=== PATIENT | female | born 1950 | race Caucasian/White ===

== ENCOUNTER 2017-07-27 11:52 | Emergency (ER) | payer OTHER ==
[2017-07-27 11:59] VITALS: BP 116/68; PULSE 66; RESP 20; TEMP 98.5; O2SAT 100
[2017-07-27] MEDS ORDERED: TETANUS/DIPHTHERIA TOXOID ADULT 0.5 ML VIAL IM ONE (12:45)
[2017-07-27] MEDS ORDERED: ACETAMINOPHEN/HYDROcodone 325 MG/5 MG TAB PO ONE (12:45)
[2017-07-27] MEDS ORDERED: AMOXICILLIN/CLAVULANATE K 875 MG TAB PO ONE (12:45)
--- NOTE | 2017-07-27 13:18 | RADRPT ---
EXAM DATE/TIME: 07/27/2017 12:48 [facility] COMPARISON: No previous studies available for comparison. INDICATIONS : Left first digit pain, post dog bite MEDICAL HISTORY : None. SURGICAL HISTORY : None. ENCOUNTER: Initial ACUITY: 1 day PAIN SCORE: 10/10 LOCATION: Left Thumb FINDINGS: Examination of the first digit of the left hand demonstrates no evidence of fracture or dislocation. No radiopaque foreign bodies are seen. The soft tissues are intact. CONCLUSION: 1. No radiopaque foreign body or acute fracture. Erik Pearson MD on July 27, 2017 at 13:16 Board Certified Radiologist. This report was verified electronically.
--- NOTE | 2017-07-27 13:21 | RADRPT ---
EXAM DATE/TIME: 07/27/2017 12:50 [facility] COMPARISON: No previous studies available for comparison. INDICATIONS : Right Fourth digit pain, Dog Bite MEDICAL HISTORY : None. SURGICAL HISTORY : None. ENCOUNTER: Initial ACUITY: 1 day PAIN SCORE: 10/10 LOCATION: Right Fourth digit FINDINGS: Mildly comminuted fracture of the fourth middle phalanx. There is mild dorsal displacement of the dis lorenzo fragment. The fracture appears to extend to the articular surface at the DIP joint. Remaining oss eous structures appear intact. No soft tissue swelling about the fourth digit. CONCLUSION: 1. Slightly displaced mildly comminuted fracture of the fourth middle phalanx. Erik Pearson MD on July 27, 2017 at 13:17 Board Certified Radiologist. This report was verified electronically.
--- NOTE | 2017-07-27 13:58 | PD ---
HPI . Injuries secondary to a dog fight Chief Complaint: Bite or Sting Time Seen by Provider: 12:26 Travel History International Travel<30 days: No Contact w/Intl Traveler<30days: No Traveled to known affect area: No History of Present Illness HPI This patient presents to us for evaluation of injury sustained in a dog fight. She was at a dog show. She states that her dog was sitting at her feet when another dog went past. The passing dog bit her dog on the neck. She was trying to break up the fight and injured her right fourth finger and left thumb. She has a laceration on the left thumb and bruising and swelling of the right fourth finger. The injury occurred just prior to presentation. She rates the pain at 5/10. She does not know the date of her last tetanus shot. PFSH Past Medical History ?: Not Past Surgical History Hysterectomy: Yes Social History Alcohol Use: Yes (OCC) Tobacco Use: No Substance Use: No Allergies-Medications (Allergen,Severity, Reaction): Coded Allergies: pseudoephedrine (Verified Allergy, Unknown, 07/27/17) Reported Meds & Prescriptions Reported Meds & Active Scripts Active No Active Prescriptions or Reported Medications Review of Systems Except as stated in HPI: all other systems reviewed are Neg Physical Exam Narrative GENERAL: Awake and alert. SKIN: warm/dry. There is a laceration at the base of the right thumb. Bleeding is controlled. There is bruising of the right fourth finger. HEAD: Normocephalic. EYES: Pupils equal and round. No scleral icterus. No injection or drainage. NECK: Full range of motion without pain.. CARDIOVASCULAR: Regular rate and rhythm. RESPIRATORY: No accessory muscle use. MUSCULOSKELETAL: She has bruising, swelling and tenderness at the PIP joint and middle phalanx of the right fourth finger. NEUROLOGICAL: Awake and alert. No obvious cranial nerve deficits. Motor grossly within normal limits. Normal speech. PSYCHIATRIC: Appropriate mood and affect; insight and judgment normal. Data Data Last Documented VS Vital Signs Date Time Temp Pulse Resp B/P (MAP) Pulse Ox O2 Delivery O2 Flow Rate FiO2 07/27/17 11:59 98.5 66 20 116/68 (84) 100 Orders Orders Finger ([id number]) (07/27/17 12:31) Finger ([id number]) (07/27/17 12:31) Tetanus/Diphtheria Tox Adult (Tetanus/Di (5/19/18 12:45) Acetamin-Hydrocod 325-5 Mg ([place] 5-325 (07/27/17 12:45) Amoxicil-Clavulanate (Augmentin) (07/27/17 12:45) MDM Medical Decision Making Medical Screen Exam Complete: Yes Emergency Medical Condition: Yes Differential Diagnosis Differential diagnosis of animal bite includes but is not limited to wound, wound infection, retained foreign body, open fracture, sepsis, rabies. Differential diagnosis of extremity trauma includes but is not limited to fracture, sprain or strain, dislocation, contusion Narrative Course This patient presents for the evaluation of injury sustained when she tried to break up a dog fight. The dogs in question are known so prophylactic rabies is not indicated at this time. She does not know the date of her last tetanus shot so that will be updated. She has a laceration at the base of the left thumb. She has bruising, swelling , tenderness and decreased motion at the PIP joint of the right fourth finger. X-rays have been ordered. She has been given [place] for her pain. Last Impressions Finger X-Ray 07/27/17 1231 Signed Impressions: Service Date/Time: Thursday, July 27, 2017 12:48 - CONCLUSION: 1. No radiopaque foreign body or acute fracture. Erik Pearson MD Finger X-Ray 07/27/17 1231 Signed Impressions: Service Date/Time: Thursday, July 27, 2017 12:50 - CONCLUSION: 1. Slightly displaced mildly comminuted fracture of the fourth middle phalanx. Erik Pearson MD The x-rays were independently reviewed by me. Her right fourth finger is splinted. She does not live here. She will follow- up with an orthopedic surgeon or hand surgeon in her hometown. She will be discharged home with instructions in local wound care for the dog bite. She was placed on prophylactic Augmentin. E force has been queried and reviewed. Diagnosis Primary Impression: Dog bite of left thumb Qualified Codes: S61.052A - Open bite of left thumb without damage to nail, initial encounter; W54.0XXA - Bitten by dog, initial encounter Additional Impression: Right fourth finger fracture Patient Instructions: Animal Bite (DC), Finger Fracture (DC), General Instructions Additional Instructions: Wash the wound twice daily with Dial soap and water. Apply a thin layer of antibiotic ointment followed by a dressing. Do this until the wound has completely healed. Follow-up with either an orthopedic surgeon or a hand surgeon when you return home. Keep the finger iced and elevated as much as possible to prevent pain and swelling. Med/Other Pt SpecificInfo: Prescription(s) given Scripts Amoxicillin-Clavulanate (Augmentin) 875-125 Mg Tab 1 TAB PO BID for Infection, #10 TAB 0 Refills Prov: Meghan Ferris MD 07/27/17 Hydrocodone-Acetaminophen ([place]) 5 Mg-325 Mg Tab 1 TAB PO Q4H Y for PAIN, #12 TAB 0 Refills Prov: Meghan Ferris MD 07/27/17 Disposition: 01 DISCHARGE HOME Condition: Stable Meghan Ferris MD July 27, 2017 13:57
[2017-07-27] MEDS ORDERED: NORC5TAB PO (14:00)
[2017-07-27] MEDS ORDERED: AUGM875T3 PO (14:00)
[2017-07-27 14:22] VITALS: RESP 18
[2017-07-27 15:07] VITALS: BP 116/72
== END 2017-07-27 15:08 | disposition home or self-care (01) ==
LOC: NEPD 11:52
DX: S61.052A Open bite of left thumb without damage to nail, initial encounter (principal); S62.622A Displaced fracture of middle phalanx of right middle finger, initial encounter for closed fracture; W54.0XXA Bitten by dog, initial encounter; Z23 Encounter for immunization
CPT/HCPCS: 73140; 90471; 90714